=== PATIENT | female | born 1965 | race Caucasian/White ===

== ENCOUNTER 2021-10-18 07:38 | Outpatient (CLI) | payer BC | END 2021-10-18 07:39 | disposition home or self-care (01) | LOC: CSHULT 07:38 | PROVIDERS: ATTEND Internal Medicine | DX: R74.8 Abnormal levels of other serum enzymes (principal) | CPT/HCPCS: 76705 ==

== ENCOUNTER 2022-07-08 12:41 | Outpatient (CLI) | payer BC | END 2022-07-08 12:42 | disposition home or self-care (01) | LOC: CSHULT 12:41 | PROVIDERS: ATTEND Internal Medicine | DX: E04.1 Nontoxic single thyroid nodule (principal) | CPT/HCPCS: 76536 ==

== ENCOUNTER 2022-08-18 13:53 | Outpatient (CLI) | payer BC | END 2022-08-18 13:54 | disposition home or self-care (01) | LOC: CSHMAMMO 13:53 | PROVIDERS: ATTEND Physician Assistant | DX: Z12.31 Encounter for screening mammogram for malignant neoplasm of breast (principal); Z80.3 Family history of malignant neoplasm of breast | CPT/HCPCS: 77063; 77067 ==

== ENCOUNTER 2023-08-27 15:23 | Outpatient (CLI) | payer BC | END 2023-08-27 15:24 | disposition home or self-care (01) | LOC: CSHMAMMO 15:23 | PROVIDERS: ATTEND Physician Assistant | DX: Z12.31 Encounter for screening mammogram for malignant neoplasm of breast (principal); Z80.3 Family history of malignant neoplasm of breast | CPT/HCPCS: 77063; 77067 ==

== ENCOUNTER 2024-08-29 08:26 | Outpatient (CLI) | payer BC | END 2024-08-29 08:27 | disposition home or self-care (01) | LOC: CSHMAMMO 08:26 | PROVIDERS: ATTEND Internal Medicine | DX: Z12.31 Encounter for screening mammogram for malignant neoplasm of breast (principal); Z80.3 Family history of malignant neoplasm of breast | CPT/HCPCS: 77063; 77067 ==